=== PATIENT | male | born 1995 | race Caucasian/White ===

== ENCOUNTER 2016-10-20 13:39 | Emergency (ER) | payer OTHER ==
[~2016-10-20] VITALS: Ht 162.6 cm; Wt 63.0 kg
[~2016-10-20 13:39] MED LIST: AUG875 PO; HYDR-3498 PO; OMEP20CA16 PO
[2016-10-20 14:04] VITALS: Ht 162.6 cm; Wt 63.0 kg
[2016-10-20] MEDS ORDERED: HYDROCODONE/APAP (5/325) TAB PO ONE (17:30)
--- NOTE | 2016-10-20 17:58 | RADRPT ---
PROCEDURE: XR Right Ankle. CLINICAL INDICATION: Twisted ankle. TECHNIQUE: AP, oblique and lateral views of the right ankle were performed. COMPARISON: None. FINDINGS: There is soft tissue swelling over the lateral malleolus. The bony elements are normal. The ankle mortise is normal. IMPRESSION: 1. Soft tissue swelling over the lateral malleolus. No evidence of an acute fracture or dislocation . RPTAT:AAJJ Physician Hakan Date Time Electronically viewed and signed by Tulio Pittman Physician on 10/20/2016 17:58 /
[2016-10-20] MEDS ORDERED: NAPR-688 PO (18:30)
[2016-10-20 19:13] VITALS: BP 119/78; PULSE 56; RESP 16
--- NOTE | 2016-10-20 19:19 | ERD ---
ER Documentation Chief Complaint Date/Time DATE: 10/20/16 TIME: 19:07 Chief Complaint HAS LEFT ANKLE PAIN SPRAINED IN THE WEEKEND HPI This 21-year-old male had a twisting injury to his ankle this weekend on Tuesday. States that he had pain at that time and has had pain since although he has been ambulatory has been getting more painful. Denies any other injury. He is otherwise healthy. ROS All systems reviewed and are negative except as per history of present illness. Medications Home Meds Active Scripts Naproxen* (Naproxen*) 500 Mg Tablet, 500 MG PO BID Y for PAIN, #24 TAB Prov:STEPHON RAGLAND DO 10/20/16 Amoxicillin-Clavulanate K* (Augmentin*) 875 Mg Tab, 875 MG PO BID for 7 Days, TAB Prov:HEDY ANNE 01/27/15 Hydrocodone Bit/Acetaminophen (Anexsia 5-325 Mg Tablet) 1 Tab Tab, 1 TAB PO Q4H Y for MILD PAIN LEVEL 1-3, #30 Prov:HEDY NANE 01/27/15 Reported Medications Omeprazole* (Omeprazole*) 20 Mg Capsule.dr, 20 MG PO AC BREAKFAST, CAP 01/22/15 Allergies Allergies: Coded Allergies: No Known Allergy (Unverified , 01/22/15) PMhx/Soc History of Surgery: No Anesthesia Reaction: No Hx Neurological Disorder: No Hx Respiratory Disorders: No Hx Cardiac Disorders: No Hx Psychiatric Problems: No Hx Miscellaneous Medical Probl: No Hx Alcohol Use: No Hx Substance Use: No Hx Tobacco Use: No Smoking Status: Never smoker Physical Exam Vitals Vital Signs Date Time Temp Pulse Resp B/P Pulse Ox O2 Delivery O2 Flow Rate FiO2 10/20/16 14:04 98.0 59 18 126/73 98 Physical Exam Const: [] No distress Head: Atraumatic Eyes: Normal Conjunctiva Ext: Right ankle with lateral swelling about the lateral malleolus as well as purpuric bruising at the bottom edge of the swelling. Tenderness about the lateral malleolus with no tenderness to the foot or medial malleolus. No knee pain and no foot pain. Distal pulses intact with good capillary refill of all toes. Neur: Awake and alert Psych: Normal Mood and Affect Results 24 hrs Current Medications Medications (Trade) Dose Ordered Sig/Maribel Route PRN Reason Start Time Stop Time Status Last Admin Dose Admin Acetaminophen/ Hydrocodone Bitart (Shields (1/838)) 1 tab ONCE ONCE PO 10/20/16 17:30 10/20/16 17:31 DC 10/20/16 17:25 Procedures/MDM Right ankle sprain with bruising and soft tissue swelling likely secondary to partial tear of the median ligament. Patient elected to have crutches in order to help him take some of the weight off of the foot. I agree with this. Was also placed in an Silvano wrap. I perform neurovascular assessment after the Silvano wrap placement the patient was neurovascularly intact. He was given a Shields tab which helped with his pain in the emergency room. We will discharge him with naproxen as well as instructions obtain orthopedic follow-up if the lesion does not have quickly healed. Return precautions also given. Right ankle x-ray interpretation: I see no fracture dislocation although there is significant soft tissue swelling about the lateral ankle. Departure Diagnosis: Primary Impression: Right ankle sprain Condition: Stable Patient Instructions: Treating Ankle Sprains Referrals: [facility] YOU HAVE RECEIVED A MEDICAL SCREENING EXAM AND THE RESULTS INDICATE THAT YOU DO NOT HAVE A CONDITION THAT REQUIRES URGENT TREATMENT IN THE EMERGENCY DEPARTMENT. FURTHER EVALUATION AND TREATMENT OF YOUR CONDITION CAN WAIT UNTIL YOU ARE SEEN IN YOUR DOCTORS OFFICE WITHIN THE NEXT 1-2 DAYS. IT IS YOUR RESPONSIBILITY TO MAKE AN APPOINTMENT FOR FOLOW-UP CARE. IF YOU HAVE A PRIMARY DOCTOR --you should call your primary doctor and schedule an appointment IF YOU DO NOT HAVE A PRIMARY DOCTOR YOU CAN CALL OUR PHYSICIAN REFERRAL HOTLINE AT IF YOU CAN NOT AFFORD TO SEE A PHYSICIAN YOU CAN CHOSE FROM THE FOLLOWING [facility] [address] [facility]. [facility] [address] [facility] [facility] [address] [facility] [address] [facility] [address] [facility] [facility]. [address] [place] [address] [place] Additional Instructions: Llame al doctor MAANA y marilia shilpa CLAUDIA PARA DENTRO DE 2-3 RUIZ. Consigue un referral para un ORTHOPEDIST si el dolor sique. Dgale a la secretaria que nosotros le instruimos hacer esta claudia.Avise o llame si hall condicin se empeora antes de la claudia. Regresa aqui si peor o no mejor. STEPHON RAGLAND DO Oct 20, 2016 19:17
== END 2016-10-20 19:14 | disposition home or self-care (01) ==
LOC: FTE 13:39
DX: S93.401A Sprain of unspecified ligament of right ankle, initial encounter (principal); X58.XXXA Exposure to other specified factors, initial encounter; Y92.9 Unspecified place or not applicable
CPT/HCPCS: 73610; Z7502; Z7610

== ENCOUNTER 2017-04-11 19:52 | Emergency (ER) | payer OTHER ==
[~2017-04-11] VITALS: Ht 157.5 cm; Wt 64.9 kg
[~2017-04-11 19:52] MED LIST changes: +NAPR-688 PO
[2017-04-11 20:32] VITALS: Ht 157.5 cm; Wt 64.9 kg
[2017-04-11] MEDS ORDERED: IBUP-1542 PO (23:44)
[2017-04-11] MEDS ORDERED: SULF1TAB31 PO (23:44)
[2017-04-11] MEDS ORDERED: CEPH-443 PO (23:44)
--- NOTE | 2017-04-11 23:57 | ERD ---
ER Documentation Chief Complaint Chief Complaint redness and swelling surrounding her right big toenail. HPI 22-year-old male presents to emergency department for complaints of redness and swelling is surrounding right big toenail, she is complaining of pain throbbing pain,6/10 scale, as was the last 2 days, has been red and swollen for the last 2 weeks. Patient denies any purulent discharge coming from the area. Patient denies any fever or chills. Patient denies any numbness or tingling. Patient denies any trauma in affected area. ROS All systems reviewed and are negative except as per history of present illness. Medications Home Meds Active Scripts Ibuprofen* (Motrin*) 600 Mg Tab, 600 MG PO Q6H Y for PAIN AND OR ELEVATED TEMP, #30 TAB Prov:MAGI RODRÍGUEZ NP 04/11/17 Cephalexin* (Keflex*) 500 Mg Capsule, 500 MG PO QID for 10 Days, CAP Prov:MAGI RODRÍGUEZ NP 04/11/17 Sulfamethoxazole/Trimethoprim* (Bactrim Ds* Tablet) 1 Each Tablet, 1 TAB PO BID , #20 TAB Prov:MAGI RODRÍGUEZ NP 04/11/17 Naproxen* (Naproxen*) 500 Mg Tablet, 500 MG PO BID Y for PAIN, #24 TAB Prov:STEPHON RAGLAND DO 10/20/16 Amoxicillin-Clavulanate K* (Augmentin*) 875 Mg Tab, 875 MG PO BID for 7 Days, TAB Prov:HEDY ANNE 01/27/15 Hydrocodone Bit/Acetaminophen (Anexsia 5-325 Mg Tablet) 1 Tab Tab, 1 TAB PO Q4H Y for MILD PAIN LEVEL 1-3, #30 Prov:HEDY ANNE 01/27/15 Reported Medications Omeprazole* (Omeprazole*) 20 Mg Capsule.dr, 20 MG PO AC BREAKFAST, CAP 01/22/15 Allergies Allergies: Coded Allergies: No Known Allergy (Unverified , 01/22/15) PMhx/Soc Medical and Surgical Hx: pt denies Medical Hx, pt denies Surgical Hx History of Surgery: No Anesthesia Reaction: No Hx Neurological Disorder: No Hx Respiratory Disorders: No Hx Cardiac Disorders: No Hx Psychiatric Problems: No Hx Miscellaneous Medical Probl: No Hx Alcohol Use: No Hx Substance Use: No Hx Tobacco Use: No FmHx Family History: No coronary disease, No diabetes, No other Physical Exam Vitals Vital Signs Date Time Temp Pulse Resp B/P Pulse Ox O2 Delivery O2 Flow Rate FiO2 04/11/17 20:32 98.5 78 20 134/71 97 Physical Exam GENERAL: The patient is well developed and appropriate for usual state of health, in no apparent distress. CHEST: Clear to auscultation bilaterally. There are no rales, wheezes or rhonchi. HEART: Regular rate and rhythm. No murmurs, clicks, rubs or gallops. No S3 or S4. ABDOMEN: Soft, nontender and nondistended. Good bowel sounds. No rebound or guarding. No gross peritonitis. No gross organomegaly or masses. No Leo sign or McBurney point tenderness. BACK: No midline or flank tenderness. EXTREMITIES: Equal pulses bilaterally. There is no peripheral clubbing, cyanosis or edema. No focal swelling or erythema. Full range of motion. Grossly neurovascularly intact. NEURO: Alert and oriented. Cranial nerves 2-12 intact. Motor strength in all 4 extremities with 5/5 strength. Sensation grossly intact. Normal speech and gait. SKIN: Noted erythema and induration surrounding the right big toenail, no fluctuance noted. No ingrown toenail noted. There is no apparent rash or petechia. The skin is warm and dry. HEMATOLOGIC AND LYMPHATIC: There is no evidence of excessive bruising or lymphedema. No gross cervical, axillary, or inguinal lymphadenopathy. Procedures/MDM Medical Decision making: Patient symptoms was likely is consistent with paronychia, incision and drainage not indicated at this time. No ingrown toenail noted. No trauma in affected area, no symptoms of any neurovascular compromise. Patient appears well and is hemodynamically stable. Radiology exams not indicated at this time. Prescription was given for Bactrim, Keflex, is advised to follow-up with primary care doctor in 2-3 days for reevaluation of symptoms. Patient was advised to return to emergency department for any worsening symptoms. Disposition: Home. Stable. Departure Diagnosis: Primary Impression: Paronychia Condition: Stable Patient Instructions: MAGI Jay NP Apr 11, 2017 23:57
== END 2017-04-11 23:55 | disposition home or self-care (01) ==
LOC: FTE 19:52
DX: L03.031 Cellulitis of right toe (principal)
CPT/HCPCS: 99284